=== PATIENT | female | born 1975 | race Caucasian/White ===

== ENCOUNTER → 2020-07-04 | Outpatient (CLI) | payer BC, OTHER | LOC: MAMO 08:16 | DX: Z01.419 Encounter for gynecological examination (general) (routine) without abnormal findings (principal) | CPT/HCPCS: 77063; 77067 ==

== ENCOUNTER → 2021-06-19 | Outpatient (CLI) | payer BC | LOC: KOH-I 13:49 | DX: R05.9 Cough, unspecified (principal) | CPT/HCPCS: 71046 ==